=== PATIENT | female | born 1970 | race Caucasian/White ===

== ENCOUNTER 2017-04-28 08:00 | Outpatient (CLI) | payer OTHER | END 2017-04-28 08:01 | LOC: LAB.R 08:00 | PROVIDERS: ATTEND Physician Assistant Medical | DX: N39.0 Urinary tract infection, site not specified (principal) | CPT/HCPCS: 87086 ==

== ENCOUNTER 2017-09-22 08:00 | Outpatient (CLI) | payer OTHER ==
[2017-09-26 15:07] LABS: HSV 2 DNA DETECTED; SOURCE LESSION ON SCRUTUM
== END 2017-09-22 08:01 | disposition home or self-care (01) ==
LOC: LAB.WCP 08:00
PROVIDERS: ATTEND Physician Assistant Medical
DX: B00.9 Herpesviral infection, unspecified (principal)
CPT/HCPCS: 87529

== ENCOUNTER 2018-08-02 14:01 | Outpatient (CLI) | payer OTHER ==
[2018-08-02 19:49] LABS: BASOPHILS % (AUTO) 0.5 %; EOSINOPHILS # (AUTO) 0.1 10^3/uL (0.0-0.7); EOSINOPHILS % (AUTO) 1.3 %; HGB - HEMOGLOBIN 13.9 g/dL (12.0-16.0); LYMPHOCYTES # (AUTO) 1.7 10^3/uL (1.5-3.5); MEAN CORPUSCULAR HEMOGLOBIN 31.6 pg (27.0-31.0); MEAN CORPUSCULAR HGB CONC 33.6 g/dL (32.0-36.0); MEAN PLATELET VOLUME 8.1 fL (7.9-10.8); MONOCYTES # (AUTO) 0.4 10^3/uL (0.0-1.0); NEUTROPHILS # (AUTO) 3.1 10^3/uL (1.5-6.6); NEUTROPHILS % (AUTO) 58.2 %; PLT - PLATELET COUNT 314 10^3/uL (130-450); RED BLOOD COUNT 4.39 10^6/uL (4.20-5.40); RED CELL DISTRIBUTION WIDTH 12.7 % (12.0-15.0); WHITE BLOOD COUNT 5.3 x10^3/uL (4.8-10.8)
[2018-08-02 20:21] LABS: ALBUMIN 4.3 g/dL (3.2-5.5); ALBUMIN/GLOBULIN RATIO 1.2 (1.0-2.2); BILIRUBIN,TOTAL 0.7 mg/dL (0.2-1.0); CALCIUM 9.1 mg/dL (8.5-10.3); CREATININE 0.6 mg/dL (0.4-1.0); MAGNESIUM 2.4 mg/dL (1.7-2.8); PHOSPHORUS 2.8 mg/dL (2.5-4.6); TOTAL PROTEIN 7.8 g/dL (6.7-8.2)
== END 2018-08-02 14:02 | disposition home or self-care (01) ==
LOC: LAB.WCP 14:01
PROVIDERS: ATTEND Physician Assistant Medical
DX: R00.2 Palpitations (principal)
CPT/HCPCS: 36415; 80053; 83735; 84100; 84443; 85025

== ENCOUNTER 2020-12-25 16:57 | Outpatient (CLI) | payer OTHER ==
--- NOTE | 2020-12-26 08:30 | XRAY Report ---
PROCEDURE: Wrist 3 View LT INDICATIONS: LEFT WRIST PAIN X 3 MONTHS TECHNIQUE: 4 views of the wrist were acquired. COMPARISON: None FINDINGS: Bones: No fractures or dislocations. No suspicious bony lesions. Normal left wrist Soft tissues: No suspicious soft tissue calcifications. IMPRESSION: Normal left wrist Reviewed by: Tony Bobby on 12/26/2020 8:29 AM PDT Approved by: Tony Bobby on 12/26/2020 8:29 AM PDT Station ID: [id number]
== END 2020-12-25 16:58 | disposition home or self-care (01) ==
LOC: DI.N 16:57
PROVIDERS: ATTEND Physician Assistant Medical
DX: M25.532 Pain in left wrist (principal)

== ENCOUNTER 2021-03-17 11:12 | Emergency (ER) | payer BC, OTHER ==
--- NOTE | 2021-03-17 11:57 | ED Physician Documentation ---
PD HPI URI - Stated complaint Stated Complaint: C+ SOA/FEVER/HEAD PX - Chief complaint Chief Complaint: General - History obtained from History obtained from: Patient - History of Present Illness Timing - onset: How many days ago (6) Timing duration: Days (6) Timing details: Abrupt onset, Still present Associated symptoms: Fever, Chills, Nasal congestion, Dry cough, NVD (nausea with vomiting the first couple days, now with nausea and less appetite/intake. Feeling generally weak. Was seen at [facility] ER 4 days ago with IV fluids and positive COVID test. No Rx per patient.) Contributing factors: Sick contact (her had COVID the week prior.), Unimmunized Similar symptoms before: Has not had sx before Recently seen: Emergency Dept ([facility] 4 days ago with IV fluids and meds.) Review of Systems Constitutional: reports: Fever, Chills, Myalgias, Fatigue Nose: reports: Congestion Throat: denies: Sore throat Respiratory: reports: Cough. denies: Dyspnea, Wheezing GI: reports: Nausea, Vomiting. denies: Abdominal Pain, Diarrhea Skin: denies: Rash Neurologic: reports: Generalized weakness. denies: Near syncope, Headache PD PAST MEDICAL HISTORY - Past Medical History Cardiovascular: None Respiratory: None Neuro: None Endocrine/Autoimmune: None - Past Surgical History Past Surgical History: No - Present Medications Home Medications: Ambulatory Orders Medication Instructions Recorded Confirmed Benzonatate [Tessalon] 100 mg PO TID PRN #20 cap 03/17/21 Ondansetron Odt [Zofran] 4 mg TL Q6H PRN #15 tablet 03/17/21 dexAMETHasone [Decadron] 4 mg PO DAILY #5 tablet 03/17/21 - Allergies Allergies/Adverse Reactions: Allergies Allergy/AdvReac Type Severity Reaction Status Date / Time No Known Drug Allergies Allergy Verified 03/17/21 11:44 - Social History Does the pt smoke?: No Smoking Status: Never smoker Does the pt drink ETOH?: No Does the pt have substance abuse?: No - Immunizations Immunizations are current?: Yes PD ED PE NORMAL - Vitals Vital signs reviewed: Yes - General General: Alert and oriented X 3, Well developed/nourished - HEENT HEENT: Pharynx benign. No: Moist mucous membranes - Neck Neck: Supple, no meningeal sign, No adenopathy - Cardiac Cardiac: RRR, No murmur - Respiratory Respiratory: Clear bilaterally - Abdomen Abdomen: Soft, Non tender - Derm Derm: Normal color, Warm and dry Results - Vitals Vitals: Vital Signs - 24 hr 03/17/21 03/17/21 03/17/21 11:45 11:48 14:14 Temperature 36.5 C 36.5 C Heart Rate 90 90 82 Respiratory 20 20 16 Rate Blood Pressure 113/63 113/63 116/74 O2 Saturation 98 98 100 Oxygen O2 Source Room air - Labs Labs: Laboratory Tests 03/17/21 03/17/21 12:59 12:59 WBC 3.7 L RBC 4.53 Hgb 14.4 Hct 40.5 MCV 89.4 MCH 31.8 H MCHC 35.6 RDW 12.1 Plt Count 209 MPV 9.6 Neut # (Auto) 2.4 Lymph # (Auto) 1.0 L [place] # (Auto) 0.4 Eos # (Auto) 0.0 Baso # (Auto) 0.0 Absolute Nucleated RBC 0.00 Nucleated RBC % 0.0 Sodium 135 Potassium 3.5 Chloride 102 Carbon Dioxide 19 L Anion Gap 14.0 H BUN 9 Creatinine 0.6 Estimated GFR (MDRD) 106 Glucose 88 Calcium 8.7 Magnesium 2.0 Total Bilirubin 0.7 AST 32 ALT 37 Alkaline Phosphatase 37 L Total Protein 7.7 Albumin 3.7 Globulin 4.0 Albumin/Globulin Ratio 0.9 L Lipase 46 PD MEDICAL DECISION MAKING - ED course Complexity details: reviewed results, considered differential (dehydrated clinically and ongoing nausea. COVID positive from recent test. I talked with Pharmacy and she does not meet criteria for monoclonal antibody. ), d/w patient Departure - Departure Disposition: 01 Home, Self Care Clinical Impression: COVID-19, Dehydration, Generalized weakness Condition: Stable Record reviewed to determine appropriate education?: Yes Instructions: ED Viral Syndrome Follow-Up: Janae Yeung PA-C [Primary Care Provider] - Prescriptions: dexAMETHasone [Decadron] 4 mg PO DAILY #5 tablet Benzonatate [Tessalon] 100 mg PO TID PRN #20 cap PRN Reason: Cough Ondansetron Odt [Zofran] 4 mg TL Q6H PRN #15 tablet PRN Reason: Nausea / Vomiting Comments: Small frequent fluids and try to remain well-hydrated. The pharmacist a years to do did not have criteria for the monoclonal antibodies according to the emergency release criteria from the FDA. We will try to help on your symptoms with Tessalon if needed for cough. Decadron steroid daily for the next 5 days to reduce the inflammatory response. Ondansetron if needed for nausea. Since you have been ill for about a week, I would anticipate starting to feel better through the remainder of this week. Follow-up with your primary care as needed. I transmitted your prescriptions to [facility]. Discharge Date/Time: 03/17/21 14:52
[2021-03-17] MEDS ORDERED: SODIUM CHLORIDE 0.9% 1,000 ML IV STA (12:40)
[2021-03-17] MEDS ORDERED: DEXAMETHASONE 10 MG/ML VIAL IVP STA (12:40)
[2021-03-17] MEDS ORDERED: FAMOTIDINE 20 MG/2 ML VIAL IVP STA (12:40)
[2021-03-17] MEDS ORDERED: ONDANSETRON 4 MG/2 ML VIAL IVP STA (12:40)
[2021-03-17] MEDS ORDERED: KETOROLAC 15 MG/ML VIAL IVP STA (12:40)
[2021-03-17] MEDS ORDERED: BENZONATATE 100 MG CAPSULE PO STA (12:41)
[2021-03-17 13:04] LABS: BASOPHILS % (AUTO) 0.3 %; HCT - HEMATOCRIT 40.5 % (37.0-47.0); HGB - HEMOGLOBIN 14.4 g/dL (12.0-16.0); LYMPHOCYTES % (AUTO) 26.3 %; MEAN CORPUSCULAR HEMOGLOBIN 31.8 pg (27.0-31.0); MEAN CORPUSCULAR HGB CONC 35.6 g/dL (32.0-36.0); MEAN CORPUSCULAR VOLUME 89.4 fL (81.0-99.0); MEAN PLATELET VOLUME 9.6 fL (7.9-10.8); MONOCYTES # (AUTO) 0.4 10^3/uL (0.0-1.0); MONOCYTES % (AUTO) 9.9 %; NEUTROPHILS # (AUTO) 2.4 10^3/uL (1.5-6.6); NEUTROPHILS % (AUTO) 63.2 %; PLT - PLATELET COUNT 209 10^3/uL (130-450); RED BLOOD COUNT 4.53 10^6/uL (4.20-5.40); RED CELL DISTRIBUTION WIDTH 12.1 % (12.0-15.0); WHITE BLOOD COUNT 3.7 x10^3/uL (4.8-10.8)
[2021-03-17 13:29] LABS: ALBUMIN 3.7 g/dL (3.2-5.5); ALBUMIN/GLOBULIN RATIO 0.9 (1.0-2.2); BILIRUBIN,TOTAL 0.7 mg/dL (0.2-1.0); CALCIUM 8.7 mg/dL (8.5-10.3); CREATININE 0.6 mg/dL (0.4-1.0); POTASSIUM 3.5 mmol/L (3.5-5.0); TOTAL PROTEIN 7.7 g/dL (6.7-8.2)
[2021-03-17 14:15] VITALS: BP 116/74
== END 2021-03-17 14:52 | disposition home or self-care (01) ==
LOC: ED 11:12
DX: U07.1 COVID-19 (principal); E86.0 Dehydration; R53.1 Weakness
CPT/HCPCS: 36415; 80053; 83690; 83735; 85025; 96361; 96374; 96375; 99283; 99285; A9270

== ENCOUNTER 2021-07-01 22:39 | Outpatient (CLI) | payer BC ==
--- NOTE | 2021-07-02 00:21 | Ultrasound Report ---
PROCEDURE: Duplex Ext Veins Right INDICATIONS: RIGHT CALF PAIN TECHNIQUE: Real-time imaging, as well as color and pulse Doppler interrogation, were performed of the lower extr emity deep veins from the inguinal ligament to the popliteal fossa. COMPARISON: None. FINDINGS: The deep veins are normally compressible, and free of intraluminal thrombus. Color and pu lse Doppler demonstrate normal phasic intraluminal flow. There is normal augmentation response to di stal compression maneuver. There is a fluid collection in the posterior fossa consistent with a Burton's cyst, measuring approxim ately 2.3 x 1.0 x 4.1 cm. IMPRESSION: 1. No evidence of deep venous thrombosis in the right lower extremity. Reviewed by: Jay Jay Ceron MD on 07/02/2021 12:22 AM PDT Approved by: Jay Jay Ceron MD on 07/02/2021 12:22 AM PDT Station ID: [id number]
== END 2021-07-01 22:40 | disposition home or self-care (01) ==
LOC: DI 22:39
PROVIDERS: ATTEND Physician Assistant Medical
DX: M79.661 Pain in right lower leg (principal)

== ENCOUNTER 2023-03-05 09:18 | Outpatient (CLI) | payer BC ==
[2023-03-05 18:47] LABS: BASOPHILS % (AUTO) 0.6 %; EOSINOPHILS # (AUTO) 0.1 10^3/uL (0.0-0.7); EOSINOPHILS % (AUTO) 2.1 %; HCT - HEMATOCRIT 43.6 % (37.0-47.0); HGB - HEMOGLOBIN 13.9 g/dL (12.0-16.0); LYMPHOCYTES # (AUTO) 2.1 10^3/uL (1.5-3.5); LYMPHOCYTES % (AUTO) 40.7 %; MEAN CORPUSCULAR HEMOGLOBIN 30.5 pg (27.0-31.0); MEAN CORPUSCULAR HGB CONC 31.9 g/dL (32.0-36.0); MEAN CORPUSCULAR VOLUME 95.6 fL (81.0-99.0); MEAN PLATELET VOLUME 10.3 fL (7.9-10.8); MONOCYTES # (AUTO) 0.4 10^3/uL (0.0-1.0); MONOCYTES % (AUTO) 8.2 %; NEUTROPHILS # (AUTO) 2.5 10^3/uL (1.5-6.6); NEUTROPHILS % (AUTO) 48.2 %; PLT - PLATELET COUNT 318 10^3/uL (130-450); RED BLOOD COUNT 4.56 10^6/uL (4.20-5.40); RED CELL DISTRIBUTION WIDTH 12.7 % (12.0-15.0); WHITE BLOOD COUNT 5.1 x10^3/uL (4.8-10.8)
[2023-03-05 19:11] LABS: ALBUMIN 4.7 g/dL (3.2-5.5); ALBUMIN/GLOBULIN RATIO 1.8 (1.0-2.2); ALKALINE PHOSPHATASE 38 IU/L (42-121); ALT ALANINE AMINOTRANSFERASE 18 IU/L (10-60); AST ASPARTATE AMINOTRANSFERASE 16 IU/L (10-42); BILIRUBIN,TOTAL 0.4 mg/dL (0.2-1.0); BUN - BLOOD UREA NITROGEN 10 mg/dL (6-20); CALCIUM 9.9 mg/dL (8.5-10.3); CARBON DIOXIDE - CO2 29 mmol/L (21-32); CHLORIDE 104 mmol/L (101-111); CHOL/HDL RATIO 4.3 (<4.4); CHOLESTEROL 247 mg/dL; CREATININE 0.6 mg/dL (0.6-1.3); GFR - MDRD 105 (>89); GLUCOSE 84 mg/dL (74-104); HDL CHOLESTEROL 57 mg/dL; LDL CHOLESTEROL,CALCULATED 171 mg/dL; POTASSIUM 4.3 mmol/L (3.5-4.5); SODIUM 139 mmol/L (135-145); TOTAL PROTEIN 7.3 g/dL (6.4-8.9); TRIGLYCERIDES 93 mg/dL (48-352); VLDL CHOLESTEROL 19 mg/dL
== END 2023-03-05 09:19 | disposition home or self-care (01) ==
LOC: LAB.N 09:18
PROVIDERS: ATTEND Physician Assistant Medical
DX: Z00.00 Encounter for general adult medical examination without abnormal findings (principal); Z79.899 Other long term (current) drug therapy
CPT/HCPCS: 36415; 80053; 80061; 83721; 85025

== ENCOUNTER 2023-05-03 16:28 | Outpatient (CLI) | payer BC ==
--- NOTE | 2023-05-03 17:10 | XRAY Report ---
PROCEDURE: Sacrum/Coccyx INDICATIONS: COCCYX PAIN TECHNIQUE: 2 views of the sacrum and coccyx acquired. COMPARISON: None. FINDINGS: Bones: No fractures or dislocations. No suspicious bony lesions. Soft tissues: Visualized bowel gas pattern is normal. No suspicious soft tissue densities. IMPRESSION: No acute bony abnormality. Reviewed by: Craig Toth MD on 05/03/2023 5:09 PM PST Approved by: Craig Toth MD on 05/03/2023 5:09 PM PST Station ID: [id number]
== END 2023-05-03 16:29 | disposition home or self-care (01) ==
LOC: DI 16:28
PROVIDERS: ATTEND Physician Assistant Medical
DX: M53.3 Sacrococcygeal disorders, not elsewhere classified (principal)

== ENCOUNTER 2023-06-16 15:35 | Outpatient (CLI) | payer BC ==
[2023-06-16 18:10] LABS: CHOL/HDL RATIO 4.4 (<4.4); CHOLESTEROL 275 mg/dL; HDL CHOLESTEROL 62 mg/dL; LDL CHOLESTEROL,CALCULATED 191 mg/dL; LDL/HDL RATIO 3.1 (<4.4); TRIGLYCERIDES 108 mg/dL (48-352); VLDL CHOLESTEROL 22 mg/dL
== END 2023-06-16 15:36 | disposition home or self-care (01) ==
LOC: LAB.N 15:35
PROVIDERS: ATTEND Physician Assistant Medical
DX: E78.5 Hyperlipidemia, unspecified (principal)
CPT/HCPCS: 36415; 80061; 83721

== ENCOUNTER 2023-06-17 06:23 | Day surgery (SDC) | payer BC ==
[2023-06-17] MEDS: LACTATED RINGERS 1,000 ML IV ONE (06:35)
[2023-06-17 06:46] LABS: HCG UR QUAL NEGATIVE
--- NOTE | 2023-06-17 07:23 | ANESTHESIA ---
Pre-Anesthesia VS, & Labs - Diagnosis screening - Procedure colonoscopy Vital Signs: Temp Pulse Resp BP Pulse Ox O2 Flow Rate 36.1 C L 80 15 109/70 100 06/17/23 06:35 06/17/23 06:35 06/17/23 06:35 06/17/23 06:35 06/17/23 06:35 Height: 5 ft 3 in Weight (kg): 66 kg Body Mass Index: 25.7 BMI Classification: Overweight - NPO Other (prep ad sirected) - Is Patient ?: No Home Medications and Allergies Home Medications: Ambulatory Orders Multivitamin 1 each PO DAILY 06/16/23 Multivitamin 1 each PO DAILY 06/16/23 Allergies/Adverse Reactions: Allergies Allergy/AdvReac Type Severity Reaction Status Date / Time No Known Drug Allergies Allergy Verified 03/17/21 11:44 Anes History & Medical History - Anesthetic History Anesthesia Complications: reports: No previous complications - Medical History Cardiovascular: reports: None Pulmonary: reports: None Gastrointestinal: reports: None Urinary: reports: None Neuro: reports: None Endocrine/Autoimmune: reports: None Skin: reports: None Smoking Status: Never smoker - Surgical History Eyes Ears Nose Throat (EENT): reports: Other Orthopedic: reports: Arthroscopic surgery Exam General: Alert, Oriented x3, Cooperative Dental: WNL Mouth Opening: Greater than 4 Fingerbreadths Neck Mobility: Normal Mallampati classification: I Thyromental Distance: greater than 6 cm Respiratory: Lungs clear Cardiovascular: Regular rate Plan Anesthesia Type: Total IV Consent for Procedure(s) Verified and Reviewed: Yes Code Status: Attempt Resuscitation ASA classification: 1-Healthy patient Is this case an emergency?: No
--- NOTE | 2023-06-17 07:28 | HISTORY & PHYSICAL EXAMINATION ---
Chief Complaint - Chief Complaint Chief Complaint: here for colonoscopy History of Present Illness - History Obtained From Records Reviewed: yes History obtained from: pt Exam Limitations: none - History of Present Illness HPI Comment/Other: here for colon cancer screening with colonoscopy. no gi symptoms or family hx. no recent labs History - Past Medical History Cardiovascular: reports: None Respiratory: reports: None Neuro: reports: None Endocrine/Autoimmune: reports: None GI: reports: None : reports: None Psych: reports: Panic attacks Derm: reports: None MRSA Hx?: No - Past Surgical History Ortho: reports: Arthroscopic surgery HEENT: reports: Other Meds/Allgy - Home Medications Home Medications: Ambulatory Orders Medication Instructions Recorded Confirmed Multivitamin 1 each PO DAILY 06/16/23 06/16/23 - Allergies Allergies/Adverse Reactions: Allergies Allergy/AdvReac Type Severity Reaction Status Date / Time No Known Drug Allergies Allergy Verified 03/17/21 11:44 Review of Systems - Other Findings Other Findings: 10 pt ros as above otherwise unremarkable Exam - Vital Signs Reviewed Vital Signs: Yes Vital Signs: Vital Signs x48h Temp Pulse Resp BP Pulse Ox 06/17/23 06:35 36.1 C L 80 15 109/70 100 - Physical Exam General Appearance: positive: No acute distress, Alert Eyes Bilateral: positive: PERRL, EOMI, No scleral icterus ENT: positive: No signs of dehydration Neck: positive: No JVD, Trachea midline Respiratory: positive: No respiratory distress Cardiovascular: positive: Regular rate & rhythm Abdomen: positive: Non-tender, No distention Neurologic/Psychiatric: positive: Oriented x3 Conclusion/Plan - Problem List (1) Colon cancer screening Conclusion/Plan: plan colonoscopy. parq held and consent obtained
[2023-06-17] MEDS ORDERED: PROPOFOL 500 MG/50 ML 500 MG/50 ML VIAL ONE (07:44)
[2023-06-17] MEDS ORDERED: LIDOCAINE-MPF 2% 5 ML VIAL ONE (07:44)
[2023-06-17] MEDS: LACTATED RINGERS 600 ML IV ONE (08:11)
[2023-06-17 08:32] VITALS: BP 107/69; O2SAT 98
--- NOTE | 2023-06-17 13:32 | ANESTHESIA POST OP EVALUATION ---
Anesthesia Post Eval - Post Anesthesia Eval Vitals: Last Vital Signs Temp 36.1 C L 06/17/23 08:22 Pulse 80 06/17/23 08:22 Resp 16 06/17/23 08:22 BP 107/69 06/17/23 08:22 Pulse Ox 98 06/17/23 08:22 O2 Flow Rate CV Function Including HR & BP: Stable Pain Control: Satisfactory Nausea & Vomiting: Negative Mental Status: Baseline Respiratory Status: Airway Patent Hydration Status: Satisfactory Anesthesia Complications: None
== END 2023-06-17 06:24 | disposition home or self-care (01) ==
LOC: SDS 06:23
PROVIDERS: ATTEND Surgery
DX: Z12.11 Encounter for screening for malignant neoplasm of colon (principal)
CPT/HCPCS: 81025; G0121; J7120

== ENCOUNTER 2023-08-23 08:29 | Outpatient (CLI) | payer BC ==
--- NOTE | 2023-08-23 12:37 | MRI Report ---
PROCEDURE: Lumbar Spine WO INDICATIONS: COCCYX PAIN, PELVIC PAIN TECHNIQUE: Noncontrast sagittal T1 spin echo and T2 fast echo, sagittal STIR, axial T1 and T2 fast spin echo thr ough the lumbar spine. In cases with scoliosis, additional coronal T2 fast spin echo may be performe d. COMPARISON: Radiograph 05/03/2023 FINDINGS: Image quality: Diagnostic Alignment: No spondylolisthesis Marrow: L4-L5 and L5-S1 disc desiccation. No acute fracture identified of the vertebral bodies. No tr aumatic subluxation Cord: Cord terminates at L1-L2. Unremarkable appearance of the cauda equina nerve roots. Soft tissues: Right greater than left renal pelviectasis, likely chronic. No paravertebral soft tissu e collections. Specific levels: L1-L2: No stenosis L2-L3: Mild facet arthropathy. No stenosis. L3-L4: Mild bilateral facet arthropathy. Small diffuse disc bulge. No stenosis. L4-L5: Small annular fissure and central protrusion. Small diffuse disc bulge. Mild facet arthropathy . Mild narrowing of the bilateral subarticular recesses. Minimal bilateral neural foraminal narrowing . L5-S1: Small annular fissure. Small central protrusion. Mild facet arthropathy. No stenosis. IMPRESSION: Mild degenerative changes as described above without area of critical stenosis. Annular fissures are seen at L4-L5 and L5-S1. No acute fracture or subluxation of the lumbar spine. Pelvic findings are se parately dictated. Reviewed by: Hector Mendoza MD on 08/23/2023 12:36 PM PDT Approved by: Hector Mendoza MD on 08/23/2023 12:36 PM PDT Station ID: [id number]
--- NOTE | 2023-08-23 12:41 | MRI Report ---
PROCEDURE: Pelvis WO INDICATIONS: COCCYX PAIN, PELVIC PAIN TECHNIQUE: Noncontrast coronal T1 spin echo and STIR through the bony pelvis. Sagittal T2 FSE with fat saturati on, oblique axial PD FSE and T2 FSE with fat saturation through the symphysis pubis. COMPARISON: Same-day lumbar spine MRI, radiograph from 05/03/2023 FINDINGS: Image quality: Diagnostic Bones: Minimal degenerative irregularity of the sacroiliac joints, without acute edema, ankylosis, or erosions. No sacral insufficiency fracture identified. Lumbar spine findings are separately dictated. The pelvi c ring appears intact overall. Soft tissues: The intrapelvic structures are not well evaluated on this nondedicated study. Reproduct majo organs appear unremarkable. Possible uterine fibroids are seen posteriorly. Colonic diverticula. IMPRESSION: Minimal degenerative irregularity of the sacroiliac joints, without acute edema to suggest fracture o r active sacroiliitis. No ankylosis or erosions. Lumbar spine findings are separately dictated. Possible uterine fibroids are seen. Colonic diverticula. Intrapelvic structures are not well evaluate d on this study. Reviewed by: Hector Mendoza MD on 08/23/2023 12:39 PM PDT Approved by: Hector Mendoza MD on 08/23/2023 12:39 PM PDT Station ID: [id number]
--- NOTE | 2023-08-23 14:09 | Ultrasound Report ---
PROCEDURE: Pelvic w/Transvaginal INDICATIONS: COCCYX PAIN, PELVIC PAIN TECHNIQUE: Real-time scanning was performed of the pelvic organs, with image documentation. Additional endovagi nal scanning was necessary due to incomplete visualization of the adnexal and endometrial structures by transabdominal scanning. COMPARISON: None. FINDINGS: Uterus: Uterus is anteverted and normal in size at 7.2 x 3.2 x 4.0 cm. The myometrium is heterogene ous. The endometrium measures 2.9 mm in combined thickness. There are 3 small fibroids noted. A rig ht posterior subserosal fibroid measures 0.9 cm. A left posterior subserosal fibroid measures 1.4 cm. An additional left posterior subserosal fibroid measures 1.2 cm. Ovaries: The right ovary measures 1.5 x 0.8 x 1.2 cm, with a calculated ovarian volume of 0.8 cc. T he left ovary measures 1.3 x 0.8 x 1.9 cm, with a calculated ovarian volume of 1.1 cc. The ovaries h ave a normal sonographic appearance. No adnexal masses are seen. Other: No pathologic free abdominal or pelvic fluid. IMPRESSION: Incidental small uterine fibroids. Otherwise unremarkable pelvic ultrasound in a postmenopausal femal e. Reviewed by: Criag Toth MD on 08/23/2023 2:08 PM PDT Approved by: Craig Toth MD on 08/23/2023 2:08 PM PDT Station ID: [id number]
== END 2023-08-23 08:30 | disposition home or self-care (01) ==
LOC: DI 08:29
PROVIDERS: ATTEND Physician Assistant Medical
DX: M47.816 Spondylosis without myelopathy or radiculopathy, lumbar region (principal); M47.817 Spondylosis without myelopathy or radiculopathy, lumbosacral region; M51.27 Other intervertebral disc displacement, lumbosacral region; M51.36 Other intervertebral disc degeneration, lumbar region; M51.37 Other intervertebral disc degeneration, lumbosacral region; M51.26 Other intervertebral disc displacement, lumbar region; M47.898 Other spondylosis, sacral and sacrococcygeal region; K57.30 Diverticulosis of large intestine without perforation or abscess without bleeding

== ENCOUNTER 2023-10-28 12:42 | Emergency (ER) | payer BC ==
[2023-10-28 12:58] VITALS: BP 122/53; O2SAT 100
--- NOTE | 2023-10-28 14:26 | ED Physician Documentation ---
History of Present Illness - Stated complaint Stated Complaint: LT CALF PX - Chief complaint Chief Complaint: Ext Problem - History obtained from History obtained from: Patient - Additonal information Additional information: About 4 days of atraumatic left calf pain. "Like it is in a vice." Denies chest pain or trouble breathing. No recent travel. No swelling. Went to walk- in clinic and referred here to rule out DVT. PD PAST MEDICAL HISTORY - Past Medical History Past Medical History: No Cardiovascular: None Respiratory: None Neuro: None Endocrine/Autoimmune: None - Past Surgical History Past Surgical History: Yes Ortho: Other HEENT: Cataracts - Present Medications Home Medications: Ambulatory Orders Medication Instructions Recorded Confirmed Clobetasol 0.05% Oint [Temovate 1 applic TOP 10/28/23 10/28/23 0.05% Oint] Estradiol [Estrace] 42.5 gm VG 10/28/23 - Allergies Allergies/Adverse Reactions: Allergies Allergy/AdvReac Type Severity Reaction Status Date / Time No Known Drug Allergies Allergy Verified 10/28/23 12:50 - Social History Does the pt smoke?: No Smoking Status: Never smoker Does the pt drink ETOH?: No Does the pt have substance abuse?: No - Immunizations Immunizations are current?: No PD ED PE NORMAL - Vitals Vital signs reviewed: Yes - General General: Alert and oriented X 3, No acute distress - Extremities Extremities: Other (There is mild tenderness to the left calf. No deformity, warmth or redness. Full range of motion with only mild pain with range of the left ankle. Knee, quad and hamstring are nontender. Normal pedal pulses.) - Neuro Neuro: Alert and oriented X 3, Normal speech - Psych Psych: Normal mood, Normal affect Results - Vitals Vitals: Vital Signs - 24 hr 10/28/23 10/28/23 12:45 14:44 Temperature 36.4 C L 36.4 C L Heart Rate 89 89 Respiratory 16 16 Rate Blood Pressure 122/53 L 122/53 L O2 Saturation 100 100 Oxygen O2 Source Room air - Rads (name of study) Left lower extremity duplex was negative for DVT per RDMS Relevant Findings:: Prelim report reviewed PD Medical Decision Making - ED course ED course: No evidence of infection, compartment syndrome or anything else serious. No back pain to suggest referred pain due to sciatica although she has had that before. Normal neurologic exam in the lower extremities. DVT sono was negative. Departure - Departure Disposition: 01 Home, Self Care Clinical Impression: Pain of lower extremity Condition: Good Record reviewed to determine appropriate education?: Yes Instructions: ED Muscle Pain Leg Cramps Comments: Heat, gentle stretching and consider [id number] magnesium supplementation. Return for new or worsening symptoms. Follow-up with your doctor in a week if not improved. Forms: PCP List Discharge Date/Time: 10/28/23 14:44
--- NOTE | 2023-10-28 15:52 | Ultrasound Report ---
PROCEDURE: Duplex Ext Veins Left INDICATIONS: lle pain TECHNIQUE: Real-time imaging, as well as color and pulse Doppler interrogation, were performed of the lower extr emity deep veins from the inguinal ligament to the popliteal fossa. Attempted visualization of the ca lf veins was performed. COMPARISON: None. FINDINGS: The deep veins are normally compressible, and free of intraluminal thrombus. Color and pu lse Doppler demonstrate normal phasic intraluminal flow. There is normal augmentation response to di stal compression maneuver. IMPRESSION: No deep venous thrombosis of the visualized lower extremity. Reviewed by: Hector Mendoza MD on 10/28/2023 3:51 PM PDT Approved by: Hector Mendoza MD on 10/28/2023 3:51 PM PDT Station ID: [id number]
== END 2023-10-28 14:44 | disposition home or self-care (01) ==
LOC: ED 12:42
DX: M79.662 Pain in left lower leg (principal)
CPT/HCPCS: 99283; 99284